=== PATIENT | male | born 1965 | race American Indian/Alaskan Native ===

== ENCOUNTER 2019-06-30 17:08 | Emergency (ER) | payer SELFPAY ==
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
[2019-06-30] MEDS ORDERED: IBUPROFEN PO ONE (19:25)
[2019-06-30] MEDS ORDERED: TYLENOL PO ONE (19:25)
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
[2019-06-30 21:14] VITALS: BP 140/92
== END 2019-06-30 20:45 | disposition home or self-care (01) ==
LOC: ED 17:08
DX: M62.830 Muscle spasm of back (principal); M62.838 Other muscle spasm; Z98.890 Other specified postprocedural states; V49.49XA Driver injured in collision with other motor vehicles in traffic accident, initial encounter; Y93.89 Activity, other specified; Y92.410 Unspecified street and highway as the place of occurrence of the external cause; Y99.8 Other external cause status
CPT/HCPCS: 72040; 72100